=== PATIENT | male | born 1950 | race Caucasian/White ===

== ENCOUNTER 2017-10-28 10:35 | Observation (INO) | payer MEDICARE ==
[~2017-10-28] VITALS: Ht 188 cm; Wt 82.4 kg
[2017-10-28 10:53] LABS: BASOPHILS % (AUTO) 0.5 % (0.0-5.0); EOSINOPHILS % (AUTO) 2.1 % (0.0-8.0); HEMATOCRIT 37.3 % (42-54); LYMPHOCYTES % (AUTO) 23.6 % (21.0-51.0); MEAN CORPUSCULAR HEMOGLOBIN 31.4 pg (27.0-33.0); MEAN CORPUSCULAR HGB CONC 35.1 g/dL (32.0-36.0); MEAN CORPUSCULAR VOLUME 89.5 fL (79-99); NEUTROPHILS % (AUTO) 65.8 % (40.0-77.0); PLATELET COUNT (AUTO) 160 K/uL (130-400); RED BLOOD CELL COUNT(AUTO) 4.17 MIL/uL (4.50-6.20); RED CELL DISTRIBUTION WIDTH 13.9 % (11.0-15.5); WHITE BLOOD COUNT (AUTO) 5.1 K/uL (4.8-10.8)
[2017-10-28] MEDS ORDERED: LORAZEPAM 2 MG/ML 1 ML VIAL ONE (11:04)
[2017-10-28 11:09] LABS: CREATININE 1.5 mg/dL (0.5-1.5); POTASSIUM 4.7 mmol/L (3.5-5.1)
[2017-10-28 11:11] LABS: INR 1.02 (0.85-1.15); PROTHROMBIN TIME 10.7 SEC (9.6-11.6)
[2017-10-28 11:23] LABS: ALBUMIN 3.3 g/dL (3.5-5.0); BILIRUBIN,TOTAL 0.4 mg/dL (0.2-1.0); CREATINE KINASE MB 0.5 ng/mL (0.5-3.6); TOTAL PROTEIN, SERUM 6.5 g/dL (6.0-8.3)
[2017-10-28] MEDS ORDERED: HYDRALAZINE HCL 20 MG/ML VIAL IV PRN (14:15)
[2017-10-28] MEDS ORDERED: ONDANSETRON HCL 4 MG/2 ML VIAL IV PRN (14:15)
[2017-10-28] MEDS ORDERED: ZOLPIDEM TARTRATE 5 MG TAB PO PRN (14:15)
[2017-10-28] MEDS ORDERED: MORPHINE SULFATE 2 MG/ML 1ML SYG IV PRN (14:15)
[2017-10-28] MEDS ORDERED: HYDROCODONE/ACETAMINOPHEN 5/325 MG TAB PO PRN (14:15)
[2017-10-28] MEDS ORDERED: ACETAMINOPHEN 325 MG TAB PO PRN (14:15)
[2017-10-28] MEDS ORDERED: LACTULOSE 20 GM/30 ML UDCUP PO PRN (14:15)
[2017-10-29 00:30] VITALS: BP 167/72
[2017-10-29 04:03] VITALS: BP 113/72
[2017-10-29] MEDS ORDERED: BUDE10.2 IH (05:26)
[2017-10-29] MEDS ORDERED: DONE10TA43 PO (05:26)
[2017-10-29] MEDS ORDERED: ASPI-555 PO (05:26)
[2017-10-29] MEDS ORDERED: LAMO200T PO (05:26)
[2017-10-29] MEDS ORDERED: AMLO5TAB2 PO (05:26)
[2017-10-29] MEDS ORDERED: BENA20TA3 PO (05:26)
[2017-10-29] MEDS ORDERED: LEVE1000 PO ×2 (05:26)
[2017-10-29 07:00] VITALS: BP 114/64
[2017-10-29] MEDS ORDERED: ALBU90AE IH (07:53)
[2017-10-29] MEDS ORDERED: LEVETIRACETAM 500 MG TABLET PO SCH ×2 (09:00→21:00)
[2017-10-29] MEDS ORDERED: PANTOPRAZOLE SODIUM 40 MG TABLET.DR PO SCH (09:00)
[2017-10-29] MEDS ORDERED: AMLODIPINE BESYLATE 5 MG TAB PO SCH (09:00)
[2017-10-29] MEDS ORDERED: ENOXAPARIN SODIUM 40 MG/0.4 ML SYRINGE SQ SCH (09:00)
[2017-10-29] MEDS ORDERED: DONEPEZIL HCL 5 MG TAB PO SCH (09:00)
[2017-10-29] MEDS ORDERED: BENAZEPRIL HCL 10 MG TABLET PO SCH (09:00)
[2017-10-29] MEDS ORDERED: LAMOTRIGINE 200 MG PO SCH (09:00)
[2017-10-29] MEDS ORDERED: ASPIRIN 81 MG EC TAB PO SCH (09:00)
[2017-10-29 11:00] VITALS: BP 106/61
[2017-10-29] MEDS ORDERED: MEMA10TA20 PO (11:34)
== END 2017-10-29 18:03 | disposition home or self-care (01) ==
LOC: EDH 10:35 → EDHIP 14:05 → 2AH 23:42
PROVIDERS: ADMIT Family Medicine; ATTEND Family Medicine
DX: R55 Syncope and collapse (principal); I10 Essential (primary) hypertension; G40.909 Epilepsy, unspecified, not intractable, without status epilepticus; W10.9XXA Fall (on) (from) unspecified stairs and steps, initial encounter; Y93.89 Activity, other specified; Y92.89 Other specified places as the place of occurrence of the external cause; Y99.8 Other external cause status; Z79.899 Other long term (current) drug therapy
CPT/HCPCS: 36415; 70450; 71045; 72125; 72170; 73610; 73630; 80053; 82550; 82553; 84484; 85025; 85610; 85730; 87040; 93005; 96372; 99285; G0378 ×28; J1650; J2060